=== PATIENT | female | born 1960 | race Caucasian/White ===

== ENCOUNTER → 2022-04-17 07:00 | Outpatient (CLI) | payer OTHER, SELFPAY ==
--- NOTE | ~2022-04-17 | MR_ITS ---
EXAMINATION: MR hip LT wo con DATE: 04/17/2022 07:49 INDICATION: Left hip pain TECHNIQUE: Magnetic resonance imaging (MRI) of the left hip was performed without intravenous contra st. Sequences included full-field axial PD-weighted FS FSE and T1-weighted FSE, coronal of the pelvis with PD-weighted FS FSE, small field of view of the affected hip with axial PD-weighted FS FSE, sag ittal PD-weighted FS FSE and coronal PD weighted FS FSE. Additional radial T1-weighted FGR oriented o rthogonal to the acetabular rim were obtained for evaluation of the labrum. COMPARISON: None FINDINGS: Bones/labrum/cartilage: 28 degrees lumbar levoscoliosis with severe lumbar spondylosis. Bone alignment is otherwise normal. A side from T2 hyperintense fibrovascular degenerative endplate changes in the lumbar spine there is no rmal marrow signal. No fracture, avascular necrosis or pathologic marrow replacing process. Mild oste oarthritis right hip with mild nonuniform partial-thickness cartilage loss without degenerative subch ondral changes. There is a tear of the anterior to posterior superior left acetabular labrum. There a ppears be a tear of the contralateral anterosuperior right acetabular labrum which is not diagnostica lly evaluated on the larger field of view images. Mild bilateral sacroiliac osteoarthritis. Fluid: Symmetric physiologic amount of fluid within both hip joints. Soft tissues: Mild tendinopathy and partial-thickness tears along the lateral facet footplates of both the left and right gluteus medius tendons with mild associated fatty atrophy, right greater than left and retract ion of the myotendinous junctions which measures 4 cm from the distal footplate on the right and 3.5 cm on the left. Tendinopathy without discrete tears, moderate severity at the left increased minimus and mild at the right gluteus minimus. The iliopsoas and proximal hamstring tendons are normal. Limit ed evaluation of visceral organs of the pelvis is unremarkable. No pathologically enlarged pelvic/in guinal lymphadenopathy. IMPRESSION: 1. Mild left hip osteoarthritis with tear of the left acetabular labrum. Tear of the contralateral ri ght acetabular labrum is also suggestion the larger field of view images. 2. Moderate left and mild right gluteus minimus tendinopathy without discrete tear and mild tendinopa thy with partial-thickness tears along the lateral facet footplates of both the left and right gluteu s medius tendons. 3. 25 degrees lumbar levoscoliosis with severe spondylosis. Reviewed, dictated and finalized at location A. IMPRESSION: 1. Mild left hip osteoarthritis with tear of the left acetabular labrum. Tear o f the contralateral right acetabular labrum is also suggestion the larger field of view images. 2. Moderate left and mild right gluteus minimus tendinopathy without discrete t ear and mild tendinopathy with partial-thickness tears along the lateral facet footplates of both the left and right gluteus medius tendons. 3. 25 degrees lumbar levoscoliosis with severe spondylosis.
== END ==
PROVIDERS: PCP Internal Medicine; Visit Provider Orthopaedic Surgery
DX: M25.552 Pain in left hip (principal); M16.12 Unilateral primary osteoarthritis, left hip; S73.192A Other sprain of left hip, initial encounter; M41.86 Other forms of scoliosis, lumbar region; M47.816 Spondylosis without myelopathy or radiculopathy, lumbar region
CPT/HCPCS: 73721

== ENCOUNTER 2022-07-10 18:13 | Emergency (ER) | payer OTHER, SELFPAY ==
--- NOTE | ~2022-07-10 | XR_ITS ---
XR finger 3rd LT min 2V 07/10/2022 18:34 Indication: Left third finger pain Procedure: 3 views left third finger Comparison: No prior studies for comparison. Findings: There is mild polyarticular osteoarthritis. Osteopenia. There are ossific densities adjacen t to the third MCP joint, consistent with age-indeterminate avulsion fragments or loose bodies. There is a ventral nondisplaced fracture base of the third middle phalanx seen on the oblique image only. Impression: 1: Ossific densities adjacent to the left third MCP joint which may represent age-indeterminate avuls ion fragments or loose bodies from degenerative change. 2: Nondisplaced fracture ventral base left third middle phalanx seen on oblique image only. Reviewed, dictated and finalized at location A. Impression: 1: Ossific densities adjacent to the left third MCP joint which may represent a ge-indeterminate avulsion fragments or loose bodies from degenerative change. 2: Nondisplaced fracture ventral base left third middle phalanx seen on oblique image only.
[2022-07-10 18:23] VITALS: BP 155/83; PULSE 65; RESP 18; TEMP 36.7; O2SAT 100
--- NOTE | 2022-07-10 18:33 | ED.UPPEXIN ---
HPI - Extremity Injury (Upper) General Chief Complaint: Extremity Injury, Upper Stated Complaint: Left Hand Finger Pain/Fall Injury Time Seen by Provider: 07/10/22 18:40 Source: patient, RN notes reviewed and old records reviewed Mode of arrival: ambulatory Limitations: no limitations History of Present Illness HPI narrative: 61 year old female presents to [facility] care with complaints of injury to her left middle finger. Patient reports that she slipped in her garage and when trying to break her fall she caught herself with her left hand and middle finger. Patient states that she has been having some problems with her left hip and has been attending therapy so she was trying to protect her hip when she fell with no stated injury voced to hip. MD complaint: injury to: left and finger (middle finger) Onset (ago): hour(s) (within past hour prior to arrival) Place: home Severity scale (1-10): 8 Treatments prior to arrival: cold therapy Related Data Home Medications Medication Instructions Recorded Confirmed atorvastatin 10 mg tablet 10 mg PO DAILY 03/23/22 07/10/22 calcium carbonate 500 mg calcium 500 mg PO DAILY 03/23/22 07/10/22 (1,250 mg) chewable tablet (Calcium 500) alendronate 70 mg tablet 70 mg PO DIRECTED 07/10/22 07/10/22 Allergies Allergy/AdvReac Type Severity Reaction Status Date / Time No Known Allergies Allergy Unverified 03/23/22 07:54 Review of Systems Review of Systems: CONSTITUTIONAL: Denies fever, chills, or sweats. EYES: Denies visual changes, redness, or discharge. ENT: Denies rhinorrhea, congestion, sore throat, or otalgia. CARDIOVASCULAR: Denies chest pain, palpitations, or edema. RESPIRATORY: Denies cough or dyspnea. GASTROINTESTINAL: Denies abdominal pain, nausea, vomiting, or diarrhea. GENITOURINARY: Denies dysuria or hematuria. SKIN: Denies rash or itching. MUSCULOSKELETAL: Denies back pain, positive pain to left middle finger due to injury or myalgia. NEUROLOGIC: Denies headache, numbness, or weakness. PSYCHIATRIC: Denies anxiety or depression. All systems reviewed & are unremarkable except as noted in HPI and below [facility] Past Medical History Medical History (Updated 07/11/22 @ 00:01 by Background Daemon) Elevated cholesterol Osteoporosis Stye Social History Social History (Updated 07/14/22 @ 09:24 by Marta Ferris NP) Smoking status: Never smoker Alcohol intake: current Substance use: never Living arrangements: with family Gender identity (if verbalized by the patient): Female Comments At time of signature, agree with nursing past medical, surgical, social and family history. There is no relevant family history pertinent to the presenting complaint Exam Narrative: GENERAL: Well-appearing, well-nourished, and in some acute distress. HEAD: Normocephalic, atraumatic. EYES: PERRLA and EOMI. ENT: Nares clear, no rhinorrhea or epistaxis. Mucous membranes moist.TM's normal with good light reflex, throat pink with no lesions or swelling NECK: Supple.no lymphadenopathy CHEST: Clear to auscultation. No respiratory distress.SAO2 100% on room air HEART: Regular rate and rhythm. No murmur heard. Normal peripheral pulses. ABDOMEN: Soft, nontender, nondistended, normal active bowel sounds. EXTREMITIES: Normal range of motion. No edema Exception noted to left 3rd middle finger with swelling and pain, unable to bend or move finger without acute pain.related injury strong left radial pulse denies any tingling or numbness to her left hand or finger. SKIN: Warm, dry, no rash. NEURO: No focal deficits. Alert and oriented x3. Course Course Level of Care: Express Care Visit Vital Signs Vital signs: Vital Signs Temperature 36.7 C 07/10/22 18:23 Pulse Rate 65 07/10/22 18:23 Respiratory Rate 18 07/10/22 18:23 Blood Pressure 155/83 H 07/10/22 18:23 Pulse Oximetry 100 07/10/22 18:23 Oxygen Delivery Room Air 07/10/22 18:23 Temperature 36.7 C 07/10/22
== END 2022-07-10 19:19 | disposition home or self-care (01) ==
PROVIDERS: Emergency Provider Registered Nurse; PCP Internal Medicine
DX: S62.643A Nondisplaced fracture of proximal phalanx of left middle finger, initial encounter for closed fracture (principal); W19.XXXA Unspecified fall, initial encounter; E78.00 Pure hypercholesterolemia, unspecified; M81.0 Age-related osteoporosis without current pathological fracture
CPT/HCPCS: 29130; 73140; 99214; G0463